=== PATIENT | male | born 1965 | race Asian ===

== ENCOUNTER 2021-02-13 23:25 | Emergency (ER) | payer OTHER ==
[~2021-02-13] VITALS: Ht 165.1 cm; Wt 81.6 kg
[2021-02-14] MEDS ORDERED: IBUPROFEN 600 MG TAB PO ONE (01:45)
[2021-02-14] MEDS ORDERED: cloNIDine HCL 0.1 MG TAB PO ONE (02:30)
[2021-02-14 02:38] VITALS: BP 145/89
== END 2021-02-14 03:38 | disposition home or self-care (01) ==
LOC: ER 23:25 → EDBD 23:25 → ER 02-14 03:38
DX: I10 Essential (primary) hypertension (principal); F41.9 Anxiety disorder, unspecified; V49.9XXA Car occupant (driver) (passenger) injured in unspecified traffic accident, initial encounter; Y93.89 Activity, other specified; Y92.89 Other specified places as the place of occurrence of the external cause; Y99.8 Other external cause status
CPT/HCPCS: 74176